=== PATIENT | male | born 1975 | race African-American/Black ===

== ENCOUNTER 2017-08-12 11:36 | Emergency (ER) | payer OTHER ==
[2017-08-12 12:25] VITALS: BP 107/57; PULSE 99; TEMP 98.7; BMI 33.9
[2017-08-12] MEDS ORDERED: IBUPROFEN 400 MG TABLET (FP) PO ONE ×2 (13:07→13:12)
--- NOTE | 2017-08-12 13:13 | PDOC ---
History of Present Illness - General Chief Complaint: Cold Symptoms Stated Complaint: FLU LIKE SYMPTOMS Time Seen by Provider: 08/12/17 12:55 History Source: Patient Exam Limitations: No Limitations - History of Present Illness Initial Comments: 08/12/17 13:10 The 42-year-old man without significant past medical history of presents to emergency department with 2 days of fever, chills, body aches, sore throat, headaches, dry cough. Patient states is his usual state of health until 2 days ago when he brought his daughter who is experiencing similar symptoms to her tip puncher. Child is being treated for influenza. Patient denies chest pain, shortness of breath, abdominal pain, nausea, vomiting. Past History - Past Medical History Allergies/Adverse Reactions: Allergies Allergy/AdvReac Type Severity Reaction Status Date / Time No Known Allergies Allergy Verified 08/12/17 12:19 Home Medications: Ambulatory Orders NK [No Known Home Medication] 08/12/17 COPD: No DVT: No Dementia: No - Immunization History Immunization Up to Date: Yes - Suicide/Smoking/Psychosocial Hx Smoking Status: No Smoking History: Never smoked Number of Cigarettes Smoked Daily: 0 Information on smoking cessation initiated: No Hx Alcohol Use: No Drug/Substance Use Hx: No Substance Use Type: None Review of Systems - Review of Systems Able to Perform ROS?: Yes Is the patient limited Green[place]ic proficient: No Constitutional: Yes: See HPI HEENTM: Yes: See HPI Respiratory: Yes: See HPI Cardiac (ROS): No: Symptoms Reported ABD/GI: No: Symptoms Reported : No: Symptoms Reported Musculoskeletal: Yes: See HPI Integumentary: No: Symptoms Reported Neurological: Yes: See HPI Endocrine: No: Symptoms Reported Hematologic/Lymphatic: No: Symptoms Reported *Physical Exam - Vital Signs Last Vital Signs Temp Pulse Resp BP Pulse Ox 98.7 F 99 H 18 107/57 95 08/12/17 12:21 08/12/17 12:21 08/12/17 12:21 08/12/17 12:21 08/12/17 12:21 - Physical Exam General Appearance: Yes: Appropriately Dressed. No: Apparent Distress HEENT: positive: TMs Normal, Pharyngeal Erythema, Tonsillar Erythema. negative : Tonsillar Exudate, Nasal Congestion, Rhinorrhea, Sinus Tenderness Neck: positive: Trachea midline, Supple Respiratory/Chest: positive: Lungs Clear, Normal Breath Sounds. negative: Respiratory Distress, Accessory Muscle Use Cardiovascular: positive: Regular Rhythm, Regular Rate. negative: Murmur Gastrointestinal/Abdominal: positive: Normal Bowel Sounds, Soft. negative: Tender Musculoskeletal: positive: Normal Inspection. negative: CVA Tenderness Extremity: positive: Normal Capillary Refill, Normal Inspection. negative: Normal Range of Motion Integumentary: positive: Normal Color, Dry, Warm Neurologic: positive: internal communications manager II-XII NML intact, Fully Oriented, Alert, Normal Mood/ Affect, Normal Response, Motor Strength 5/5, Finger to Nose Medical Decision Making - Medical Decision Making 08/12/17 13:11 A/P: 42-year-old male without medical problems presents with flulike symptoms for 2 days. Daughter has been experiencing similar symptoms and is currently being treated for flu. Pharyngeal erythema noted. No tonsillar erythema or exudates are noted. No cervical lymphadenopathy is present. Cranial nerves II through XII intact. Normal finger nose testing. Able to perform rapid alternating movements without difficulty. Influenza testing Motrin 800 mg by mouth Reassess 08/12/17 13:48 Influenza testing negative. I discussed the physical exam findings, ancillary test results and final diagnoses with the patient. I answered all of the patient's questions. The patient was satisfied with the care received and felt comfortable with the discharge plan and treatment plan. The patient will call his doctor within 96 hours to arrange follow-up and will return to the Emergency Department with any new, persistent or worsening symptoms. *DC/Admit/Observation/Transfer Diagnosis at time of Disposition: Viral URI with cough - Discharge Dispostion Disposition: HOME Condition at time of disposition: Stable Admit: No - Referrals - Patient Instructions Additional Instructions: Rest, drink lots of fluids: Teas, water, soups, Pedialyte Saltwater gargles Steamy showers/seem to face break up mucus Avoid contact with others until fevers and cough resolved Lots of handwashing and good hygiene Continue [id number] medications for symptomatic relief Tylenol or Motrin for fever and pain Followup with private physician in one to 2 days as needed Return to emergency department for worsened symptoms, fevers, dehydration - Post Discharge Activity
== END 2017-08-12 13:52 | disposition home or self-care (01) ==
LOC: JERFT 11:36
DX: J06.9 Acute upper respiratory infection, unspecified (principal); B97.89 Other viral agents as the cause of diseases classified elsewhere
CPT/HCPCS: 87804; 99281-25

== ENCOUNTER 2018-04-06 16:16 | Emergency (ER) | payer OTHER ==
--- NOTE | 2018-04-06 16:21 | PDOC ---
Rapid Medical Evaluation Time Seen by Provider: 04/06/18 16:20 Medical Evaluation: Allergies Allergy/AdvReac Type Severity Reaction Status Date / Time No Known Allergies Allergy Verified 04/06/18 16:20 04/06/18 16:23 The patient presents with a chief complaint of: foot injury one week ago, no wound I have performed a brief in-person evaluation of this patient. Pertinent physical exam findings: vss, stable I have ordered the following: foot xray The patient will proceed to the ED for further evaluation.
[2018-04-06 16:23] VITALS: BP 111/75; PULSE 94; TEMP 98.9; BMI 33.5
--- NOTE | 2018-04-06 17:11 | PDOC ---
History of Present Illness - General Chief Complaint: Injury Stated Complaint: LT FOOT INJURY Time Seen by Provider: 04/06/18 16:20 History Source: Patient Exam Limitations: No Limitations - History of Present Illness Initial Comments: 04/06/18 17:07 pt jammed left great toe one week ago on door frame. Past History - Past Medical History Allergies/Adverse Reactions: Allergies Allergy/AdvReac Type Severity Reaction Status Date / Time No Known Allergies Allergy Verified 04/06/18 16:20 Home Medications: Ambulatory Orders NK [No Known Home Medication] 08/12/17 COPD: No DVT: No Dementia: No - Immunization History Immunization Up to Date: Yes - Suicide/Smoking/Psychosocial Hx Smoking Status: No Smoking History: Never smoked Number of Cigarettes Smoked Daily: 0 Hx Alcohol Use: No Drug/Substance Use Hx: No Substance Use Type: None *Physical Exam - Vital Signs Last Vital Signs Temp Pulse Resp BP Pulse Ox 98.9 F 94 H 18 111/75 96 04/06/18 16:21 04/06/18 16:21 04/06/18 16:21 04/06/18 16:21 04/06/18 16:21 - Physical Exam General Appearance: Yes: Nourished, Appropriately Dressed HEENT: positive: EOMI, TIMOTEO Musculoskeletal: positive: Normal Inspection Extremity: positive: Normal Capillary Refill, Normal Inspection, Normal Range of Motion, Tender (base of the left toe ttp no deformity or redness) Integumentary: positive: Normal Color, Dry, Warm Neurologic: positive: Fully Oriented, Alert, Normal Mood/Affect, Normal Response , Motor Strength 5/5 Medical Decision Making - Medical Decision Making 04/06/18 17:08 cc: toe pain left no deformity no redness, no discharge xray is negative for fracture will dc home with follow up podiatry *DC/Admit/Observation/Transfer Diagnosis at time of Disposition: Sprain of great toe Qualifiers: Encounter type: initial encounter Laterality: left Qualified Code(s): S93.502A - Unspecified sprain of left great toe, initial encounter - Discharge Dispostion Disposition: HOME Condition at time of disposition: Good - Referrals Referrals: Jarrod Cedeno MD [Staff Physician] - - Patient Instructions Additional Instructions: take naprosyn for pain soak in warm salt water for 15 minutes twice a day follow with the radio maintainer for follow up - Post Discharge Activity
== END 2018-04-06 17:23 | disposition home or self-care (01) ==
LOC: JERFT 16:16
DX: S93.512A Sprain of interphalangeal joint of left great toe, initial encounter (principal); W23.1XXA Caught, crushed, jammed, or pinched between stationary objects, initial encounter; Y93.01 Activity, walking, marching and hiking; Y92.89 Other specified places as the place of occurrence of the external cause; Y99.8 Other external cause status
CPT/HCPCS: 73630-TC-LT; 99281-25

== ENCOUNTER 2019-07-20 11:26 | Emergency (ER) | payer OTHER ==
[2019-07-20 11:39] VITALS: BMI 33.7
[2019-07-20] MEDS ORDERED: IBUPROFEN 600 MG TABLET (FP) PO ONE ×2 (12:58→13:06)
--- NOTE | 2019-07-20 14:03 | PDOC ---
History of Present Illness - General Chief Complaint: Cold Symptoms Stated Complaint: DIZZY/FEVER Time Seen by Provider: 07/20/19 12:06 History Source: Patient Exam Limitations: No Limitations - History of Present Illness Initial Comments: 07/20/19 12:58 44-year-old male presents the ED with complaints of fever since Friday with a T- max of 102.9 along with headache, myalgia, arthralgia and generalized weakness. Patient states mild dry cough but otherwise no other URI symptoms. Patient denies recent travel, recent illness or recent sick contacts. Is this a multiple visit Asthma Patient?: No Timing/Duration: reports: yesterday Severity: reports: mild Possible Cause: Yes: no prior episodes Associated Symptoms: reports: fever/chills, headache, lightheadedness, muscle aches Past History - Past Medical History Allergies/Adverse Reactions: Allergies Allergy/AdvReac Type Severity Reaction Status Date / Time No Known Allergies Allergy Verified 07/20/19 11:39 Home Medications: Ambulatory Orders NK [No Known Home Medication] 08/12/17 COPD: No DVT: No Dementia: No Other medical history: CAMPO - Immunization History Immunization Up to Date: Yes - Psycho Social/Smoking Cessation Hx Smoking Status: No Smoking History: Never smoked Number of Cigarettes Smoked Daily: 0 Hx Alcohol Use: No Drug/Substance Use Hx: No Substance Use Type: None Patient Lives Alone: No Lives with/in: spouse/SO Review of Systems - Review of Systems Able to Perform ROS?: Yes Constitutional: Yes: Fever, Weakness HEENTM: No: Symptoms Reported Respiratory: No: Symptoms reported Cardiac (ROS): No: Symptoms Reported ABD/GI: No: Symptoms Reported : No: Symptoms Reported Musculoskeletal: Yes: Joint Pain, Muscle Pain Integumentary: No: Symptoms Reported Neurological: Yes: Numbness Endocrine: No: Symptoms Reported Hematologic/Lymphatic: No: Symptoms Reported *Physical Exam - Vital Signs Last Vital Signs Temp Pulse Resp BP Pulse Ox 98.9 F 94 H 18 124/74 99 07/20/19 11:36 07/20/19 11:36 07/20/19 11:36 07/20/19 11:36 07/20/19 11:36 - Physical Exam General Appearance: Yes: Nourished, Appropriately Dressed. No: Apparent Distress HEENT: positive: TMs Normal, Pharyngeal Erythema. negative: Pale Conjunctivae Neck: positive: Normal Thyroid, Supple Respiratory/Chest: positive: Lungs Clear, Normal Breath Sounds. negative: Respiratory Distress, Accessory Muscle Use Cardiovascular: positive: Regular Rhythm, Regular Rate. negative: Murmur Gastrointestinal/Abdominal: positive: Soft. negative: Tenderness Extremity: positive: Normal Inspection Integumentary: positive: Normal Color, Warm, Moist Neurologic: positive: Motor Strength 5/5 (ambulatory) ED Treatment Course - Medications Given in the ED: ED Medications Discontinued Medications Generic Name Dose Route Start Last Admin Trade Name Nader PRN Reason Stop Dose Admin Ibuprofen 600 mg 07/20/19 12:58 07/20/19 13:19 Motrin - PO 07/20/19 12:59 600 mg ONCE ONE Administration Medical Decision Making - Medical Decision Making 07/20/19 13:11 Chief complaint: Fever, URI symptoms, myalgia and arthralgia no meds taken today symptoms began yesterday. Exam: Patient warm to touch and appears tired. Plan: Motrin and influenza swab ordered 07/20/19 14:39 Laboratory Tests 07/20/19 07/20/19 12:50 13:18 Influenza A (Rapid) Negative Influenza B (Rapid) Negative Group A Strep Rapid Negative Patient will be revitalized. Patient's vitals stable. Patient now also mentioning cough with burning sensation to his bronchus. Patient will be treated with Z-Sharan although my biggest recommendations are to take Motrin 600 every 8 hours drink plenty of fluids rest, wash hands and cover mouth when coughing Discharge - Discharge Information Problems reviewed: Yes Clinical Impression/Diagnosis: Viral URI with cough Condition: Improved Disposition: HOME - Follow up/Referral - Patient Discharge Instructions Patient Printed Discharge Instructions: DI for Acute Bronchitis, DI for Viral Upper Respiratory Infection -- Adult Additional Instructions: Although the fluid and strep were negative I still recommend resting drinking plenty of fluids washing hands covering her mouth when coughing and taking Motrin or Tylenol for fever/pain - Post Discharge Activity
[2019-07-20 14:45] VITALS: BP 120/71; PULSE 78; TEMP 98.6
== END 2019-07-20 14:50 | disposition home or self-care (01) ==
LOC: JERFT 11:26
DX: J06.9 Acute upper respiratory infection, unspecified (principal); B97.89 Other viral agents as the cause of diseases classified elsewhere
CPT/HCPCS: 87070; 87804; 87880; 99281-25

== ENCOUNTER 2024-01-02 17:15 | Emergency (ER) | payer OTHER ==
[2024-01-02 17:26] VITALS: BP 109/61; PULSE 69; RESP 18; TEMP 98.8; BMI 33.5
[2024-01-02] MEDS ORDERED: METOCLOPRAMIDE HCL INJECTION 10 MG/2 ML VIAL ONE (18:06)
[2024-01-02] MEDS ORDERED: ACETAMINOPHEN INJECTION 100 ML IVPB ONE (18:06)
[2024-01-02] MEDS: ACETAMINOPHEN 1000 MG/100 ML BAG IVPB ONE (18:24)
[2024-01-02] MEDS: SODIUM CHLORIDE 0.9% 500 ML INFUS.BAG IV ONE (18:24)
[2024-01-02] MEDS: METOCLOPRAMIDE HCL INJECTION 10 MG/2 ML VIAL IVPUSH ONE (18:24)
[2024-01-02] MEDS ORDERED: PROCHLORPERAZINE INJECTION 10 MG/2 ML VIAL ONE (19:35)
[2024-01-02] MEDS: PROCHLORPERAZINE INJECTION 10 MG/2 ML VIAL IVPB ONE (19:44)
== END 2024-01-02 20:14 | disposition home or self-care (01) ==
LOC: JER 17:15
PROC: 3E033NZ Introduction of Analgesics, Hypnotics, Sedatives into Peripheral Vein, Percutaneous Approach (ICD-10-PCS; principal; 2024-01-02)
PROC: 3E033GC Introduction of Other Therapeutic Substance into Peripheral Vein, Percutaneous Approach (ICD-10-PCS; 2024-01-02)
PROC: 3E033GC Introduction of Other Therapeutic Substance into Peripheral Vein, Percutaneous Approach (ICD-10-PCS; 2024-01-02)
DX: R51.9 Headache, unspecified (principal)
CPT/HCPCS: 70450-TC; 96374; 96375; 99284-25; J0131